=== PATIENT | female | born 1990 | race Hispanic/Latino ===

== ENCOUNTER 2019-02-17 06:48 | Day surgery (SDC) | payer OTHER ==
[2019-02-15 16:17] LABS: Absolute Lymphocytes (CBC) 2.5 K/uL (0.7-4.9); Basophils % 0.8 % (0-1.3); Lymphocytes % 43.8 % (15.3-44.8); MPV 8.9 fL (7.6-11.3); RBC Red Blood Cell Count 4.72 M/uL (3.86-4.86)
[2019-02-15 16:35] LABS: BUN Blood Urea Nitrogen 11 mg/dL (7-18); Bicarbonate 31 mmol/L (21-32); Glucose Level 93 mg/dL (74-106); Potassium 3.5 mmol/L (3.5-5.1); Sodium Level 141 mmol/L (136-145)
[~2019-02-17 06:48] MED LIST: Ringers Lactate 1,000 ML IV ONE
[2019-02-17] MEDS ORDERED: Ringers Lactate 1,000 ML IV ONE (07:27)
[2019-02-17] MEDS ORDERED: CEFAZOLIN/SWI 1gm 1 GM/10 ML SYR ONE (08:21)
--- NOTE | 2019-02-17 08:27 | RAD REPORT ---
EXAM DESCRIPTION: US - Brst,Preop NL Wire Init w/Guid - 02/17/2019 8:11 am CLINICAL HISTORY: N Right breast mass COMPARISON: US OB COMP W BIOPHYSCL PROFILE dated 01/16/2012 FINDINGS: Preoperative diagnosis: Right breast mass. Post operative diagnosis: Same. Conscious Sedation: None Fluoroscopy time: None Contrast used: None Estimated blood loss: Minimal The right breast was prepped and draped in the usual sterile fashion. 1% lidocaine was infiltrated in to the subcutaneous tissues for local anesthesia. Preoperative wire localization device was utilized place a wire in the large retroareolar right breast mass. The patient was then sent for surgical exci twan. There were no complications. IMPRESSION: Successful ultrasound-guided preoperative right breast wire localization.
[2019-02-17] MEDS ORDERED: FENTANYL CITR 100 MCG/2 ML ONE (09:07)
[2019-02-17] MEDS ORDERED: PROPOFOL 200 MG/20 ML VIAL IV ONE (09:07)
[2019-02-17] MEDS ORDERED: LIDOCAINE 1% MPF 5 ML VIAL ONE (09:08)
[2019-02-17] MEDS ORDERED: MIDAZOLAM HCL 2 MG/2 ML INJ ONE (09:08)
[2019-02-17] MEDS ORDERED: KETOROLAC 30 MG/ML INJ ONE (09:51)
[2019-02-17] MEDS ORDERED: ONDANSETRON 4 MG/2 ML VIAL ONE (09:58)
--- NOTE | 2019-02-17 10:19 | P.BOP ---
Preoperative diagnosis: right breast mass Postoperative diagnosis: Same Primary procedure: Right breast lumpectomy needle localized Estimated blood loss: <10c Specimen: lump Findings: lesion within the specimen with intact needle by Dr Nation Anesthesia: General Complications: None Transferred to: Recovery Room Condition: Good
--- NOTE | 2019-02-17 10:44 | RAD REPORT ---
EXAM DESCRIPTION: US - Surgical Specimen - 02/17/2019 10:16 am CLINICAL HISTORY: AEMT Status post mass resection. COMPARISON: Brst,Preop NL Wire Init w/Guid dated 02/17/2019 FINDINGS: Surgical specimen was submitted. Full specimen ultrasound demonstrates a mass interest to be within the specimen along with the guide wire. Findings were discussed with Dr. Ervin.
[2019-02-17] MEDS ORDERED: MEPERIDINE HCL 50 MG/ML ONE (11:03)
[2019-02-17] MEDS ORDERED: PROMETHAZINE 25 MG/ML VIAL ONE (11:03)
[2019-02-17] MEDS ORDERED: CODEINE 30MG/APAP 300MG TAB ONE (12:22)
[2019-02-17 12:30] VITALS: BP 108/73; TEMP 98.2; O2SAT 95
--- NOTE | 2019-02-17 23:34 | OP ---
Date of Procedure: 02/17/2019 Surgeon: Evans Ervin MD Preoperative Diagnosis: Right breast mass. Postoperative Diagnosis: Right breast mass. Procedures: Right breast lumpectomy, needle localized. Findings: Lesion within the specimen, intact needle by Dr. Nation. Anesthesia: General plus local. Indications: This is the case of a 28-year-old patient with a very tender mass in the retroareolar a becka. It has been examined before, but patient claims it is getting bigger fast and also very tender, she wants that excised. The benefits, alternatives, and risks of excision and needle localized full y explained to the patient, which include, but are not limited to infection, bleeding, damage to dominick cent structures, anesthesia complication, not relieve the current symptoms. Patient understand this may not relieve the symptoms. She might need more than one surgical intervention. Description Of Procedure: She went this morning to the Radiology Suite, where she had localization o f the area by radiologist and directly to the OR making sure the incision looks nice and intact and t he needle looks nice and intact with no . Once the patient got into the OR, patient was br ought in supine position. Anesthesia was done without complication and a time-out was called. The r ight breast was prepped and draped in sterile fashion, once again making sure the needle did not move . At that moment, I proceeded to make a circumareolar incision. Incision was carried down follow th e wire and we noticed the mass. The mass was completely excised with the wire. We removed a white l ump since patient had more than 1 lesion in that area. This specimen was sent to the pathologist. A becka was irrigated. Hemostasis was obtained and the area was closed with 4-0 PDS in a running fashion and Steri-Strips on top. Sponge count and instrument counts were correct. The patient tolerated th e procedure well. Patient was sent to recovery in stable condition. Diagnosis: Right breast mass. Procedure: Right breast lumpectomy, needle localized. Disposition: Home. Activity: As tolerated. No heavy lifting. Followup: Follow up in my office in 1 week. Call for appointment [phone]. Keep the area dry for 4 8 hours, then may shower. Keep Steri-Strips intact. Use some breast support. Medications: Include Tylenol No. 3 q.4 hours p.r.n. pain. FRANK/NOEMI Voice ID: [id number] Report ID: [id number]
== END 2019-02-17 13:00 | disposition home or self-care (01) ==
LOC: OR 06:48
PROVIDERS: ATTEND Surgery
PROC: 0HBT0ZZ Excision of Right Breast, Open Approach (ICD-10-PCS; principal; 2019-02-17 09:15)
DX: D24.1 Benign neoplasm of right breast (principal)
CPT/HCPCS: 85025; 80048; 36415; 81025; 88305; 76098; 19285; 19301; J2704; J2550; J2250; J3010; J2175; J0690; J7120 ×2; J2405